=== PATIENT | female | born 1995 ===

== ENCOUNTER 2023-06-28 03:56 | Emergency (ER) | payer OTHER ==
[~2023-06-28] VITALS: Ht 160 cm; Wt 99.8 kg
[2023-06-28 05:03] LABS: BASOPHILS ABSOLUTE AUTO 0.04 K/mm3 (0.00-0.23); BASOPHILS PERCENT AUTO 1 % (0-2); EOSINOPHILS ABSOLUTE AUTO 0.15 K/mm3 (0.00-0.68); EOSINOPHILS PERCENT AUTO 2 % (0-6); Hematocrit 37.4 % (33.0-51.0); Hemoglobin 11.8 g/dL (11.5-16.0); IMMATURE GRAN ABSOLUTE AUTO 0.03 K/mm3 (0.00-0.10); IMMATURE GRAN PERCENT AUTO 0 % (0-1); LYMPHOCYTES ABSOLUTE AUTO 2.89 K/mm3 (0.84-5.20); LYMPHOCYTES PERCENT AUTO 34 % (21-46); MONOCYTES ABSOLUTE AUTO 0.52 K/mm3 (0.16-1.47); MONOCYTES PERCENT AUTO 6 % (4-13); Mean Corpuscular HGB 25.5 pg (26.0-34.0); Mean Corpuscular HGB Conc 31.6 g/dL (31.5-36.5); Mean Corpuscular Volume 81 fL (80-100); Mean Platelet Volume 9.6 fL (9.1-12.4); NEUTROPHILS PERCENT AUTO 57 % (41-73); Platelet Count 366 K/mm3 (150-400); RDW Coefficient Variation 14.2 % (11.7-14.2); RDW Standard Deviation 41.5 fL (35.1-46.3); Red Blood Cell Count 4.62 M/mm3 (3.80-5.20); White Blood Cell Count 8.53 K/mm3 (4.00-11.30)
[2023-06-28 05:20] LABS: Albumin, Blood 3.3 g/dL (3.4-5.0); Albumin/Globulin Ratio 0.7 (0.8-1.8); Bilirubin, Total 0.2 mg/dL (0.1-1.0); Bun/Creatinine Ratio 10.8 (12.0-20.0); Calcium, Blood 8.6 mg/dL (8.5-10.1); Creatinine, Blood 0.65 mg/dL (0.40-1.00); Globulin, Blood 4.6 g/dL (2.2-4.0); Total Protein, Blood 7.9 g/dL (6.4-8.2)
[2023-06-28 06:00] VITALS: BP 110/84
[2023-06-28] MEDS ORDERED: ONDA4ODT MM (06:29)
== END 2023-06-28 07:01 | disposition home or self-care (01) ==
LOC: EDBD 03:56 → ER 03:56
PROVIDERS: Student in an Organized Health Care Education/Training Program
DX: B34.9 Viral infection, unspecified (principal)
CPT/HCPCS: 80053; 84703; 85025; 96361; 96374; 99284-25; J2405; J7030